=== PATIENT | female | born 1995 | race Caucasian/White ===

== ENCOUNTER 2017-02-23 11:09 | Emergency (ER) | payer SELFPAY ==
[~2017-02-23] VITALS: Ht 172.7 cm; Wt 82.0 kg
[2017-02-23 11:31] VITALS: BP 133/98
== END 2017-02-23 13:47 | disposition home or self-care (01) ==
LOC: ER 13:32
DX: H92.02 Otalgia, left ear (principal)
CPT/HCPCS: 99282